=== PATIENT | male | born 1960 | race Caucasian/White ===

== ENCOUNTER 2019-08-15 12:51 | Inpatient (IN) | payer MEDICARE, OTHER ==
[2019-08-15] MEDS ORDERED: METOPROLOL TARTRATE 5 MG/5 ML VIAL IVP STA (13:33)
[2019-08-15 13:45] LABS: Basophils % (A) 1 %; Eosinophils # (A) 0.2 k/uL (0-0.7); Eosinophils % (A) 3 %; HCT 45.3 % (39.0-53.0); HGB 14.4 gm/dL (13.0-17.5); Lymphocytes # (A) 1.2 k/uL (1.0-4.8); Lymphocytes % (A) 14 %; MCH 28.9 pg (25.0-35.0); MCHC 31.9 g/dL (31.0-37.0); MCV 90.6 fL (80.0-100.0); Mean Platelet Volume 8.1; Monocytes # (A) 0.6 k/uL (0-1.0); Monocytes % (A) 7 %; Neutrophils # (A) 6.3 k/uL (1.3-7.7); Neutrophils % (A) 75 %; Platelet Count 175 k/uL (150-450); RDW 14.9 % (11.5-15.5); WBC 8.5 k/uL (3.8-10.6)
--- NOTE | 2019-08-15 13:59 | XR ---
EXAMINATION TYPE: XR chest 2V DATE OF EXAM: 08/15/2019 COMPARISON: NONE HISTORY: Difficulty breathing TECHNIQUE: Frontal and lateral views of the chest are obtained. FINDINGS: There are low lung volumes accentuating the pulmonary vasculature. Central pulmonary vascu lar prominence however is noted. Trace pleural effusions suggested on the lateral view. Cardiomediast inal silhouette is enlarged although partially relative given the low lung volumes. Mild degenerative change of the spine. IMPRESSION: Mild pulmonary vascular congestion, cardiomegaly, and trace pleural effusions all exagge rated by low lung volumes.
[2019-08-15 14:03] LABS: ALT 37 U/L (4-49); African American GFR (CKD) >90 (>60 ml/min/1.73 sqM); Anion Gap 10 mmol/L; Blood Urea Nitrogen 16 mg/dL (9-20); Calcium 9.7 mg/dL (8.4-10.2); Carbon Dioxide 23 mmol/L (22-30); Chloride 100 mmol/L (98-107); Glucose 263 mg/dL (74-99); Non-African American GFR(CKD) 85 (>60 ml/min/1.73 sqM); Sodium 133 mmol/L (137-145); Total Bilirubin 1.2 mg/dL (0.2-1.3)
[2019-08-15 14:13] LABS: Potassium 5.5 mmol/L (3.5-5.1)
[2019-08-15 14:14] LABS: AST 56 U/L (17-59); Albumin 4.3 g/dL (3.5-5.0); Alkaline Phosphatase 100 U/L (38-126); Total Protein 7.1 g/dL (6.3-8.2)
[2019-08-15 14:24] LABS: INR 1.1 (<1.2); Prothrombin Time 10.9 sec (9.0-12.0)
[2019-08-15 14:46] LABS: D-Dimer 1.68 mg/L FEU (<0.60)
[2019-08-15 14:47] LABS: Partial Thromboplastin Time 20.9 sec (22.0-30.0)
--- NOTE | 2019-08-15 15:32 | ED ---
SOB HPI - General Chief Complaint: Shortness of Breath Stated Complaint: SOB Time Seen by Provider: 08/15/19 13:04 Source: patient, RN notes reviewed Mode of arrival: ambulatory Limitations: no limitations - History of Present Illness Initial Comments: 59-year-old male presents emergency Department with chief complaint of shortness breath. He's had increasing transfer the last couple days. He states is worse with exertion. Denies any leg swelling. Patient states that he does have a history of hypertension diabetes he states he did not take any of his medications. Patient does admit that he has mild asthma and has been having increased nasal congestion, sinus issues with ALLERGIES. Patient has complaints of abdominal pain denies any significant lower extremity swelling. Patient denies any dysuria hematuria no other complaints at this time. - Related Data Allergies Allergy/AdvReac Type Severity Reaction Status Date / Time aspirin Allergy Anaphylaxis Verified 08/15/19 13:04 Sulfa (Sulfonamide Allergy Anaphylaxis Verified 08/15/19 13:04 Antibiotics) Review of Systems ROS Statement: Those systems with pertinent positive or pertinent negative responses have been documented in the HPI. ROS Other: All systems not noted in ROS Statement are negative. Past Medical History Past Medical History: Asthma, Diabetes Mellitus, Hyperlipidemia, Hypertension History of Any Multi-Drug Resistant Organisms: None Reported Past Surgical History: Appendectomy Past Psychological History: Schizophrenia Smoking Status: Current every day smoker Past Alcohol Use History: None Reported Past Drug Use History: None Reported General Exam Limitations: no limitations General appearance: alert, in no apparent distress, anxious Head exam: Present: atraumatic, normocephalic, normal inspection Eye exam: Present: normal appearance, PERRL, EOMI. Absent: scleral icterus, conjunctival injection, periorbital swelling ENT exam: Present: normal exam, normal oropharynx, mucous membranes moist Neck exam: Present: normal inspection, full ROM. Absent: tenderness, meningismus, lymphadenopathy Respiratory exam: Present: normal lung sounds bilaterally. Absent: respiratory distress, wheezes, rales, rhonchi, stridor Cardiovascular Exam: Present: normal rhythm, tachycardia, normal heart sounds. Absent: systolic murmur, diastolic murmur, rubs, gallop, clicks GI/Abdominal exam: Present: soft, normal bowel sounds. Absent: distended, tenderness, guarding, rebound, rigid Extremities exam: Absent: pedal edema Neurological exam: Present: alert, oriented X3, CN II-XII intact Skin exam: Present: warm, dry, intact, normal color. Absent: rash Course Vital Signs 08/15/19 08/15/19 08/15/19 13:02 13:04 13:22 Temperature 98.3 F Pulse Rate 126 H Respiratory 18 20 20 Rate Blood Pressure 149/101 O2 Sat by Pulse 97 Oximetry 08/15/19 14:04 Temperature Pulse Rate 108 H Respiratory 20 Rate Blood Pressure 138/104 O2 Sat by Pulse 98 Oximetry Medical Decision Making - Lab Data Result diagrams: 08/15/19 13:25 08/15/19 13:25 Lab Results 08/15/19 08/15/19 08/15/19 Range/Units 13:25 13:25 13:25 WBC 8.5 (3.8-10.6) k/uL RBC 5.00 (4.30-5.90) m/uL Hgb 14.4 (13.0-17.5) gm/dL Hct 45.3 (39.0-53.0) % MCV 90.6 (80.0-100.0) fL MCH 28.9 (25.0-35.0) pg MCHC 31.9 (31.0-37.0) g/dL RDW 14.9 (11.5-15.5) % Plt Count 175 (150-450) k/uL Neutrophils % 75 % Lymphocytes % 14 % Monocytes % 7 % Eosinophils % 3 % Basophils % 1 % Neutrophils # 6.3 (1.3-7.7) k/uL Lymphocytes # 1.2 (1.0-4.8) k/uL Monocytes # 0.6 (0-1.0) k/uL Eosinophils # 0.2 (0-0.7) k/uL Basophils # 0.0 (0-0.2) k/uL PT (9.0-12.0) sec INR (<1.2) APTT (22.0-30.0) sec D-Dimer (<0.60) mg/L FEU Sodium 133 L (137-145) mmol/L Potassium 5.5 H (3.5-5.1) mmol/L Chloride 100 (98-107) mmol/L Carbon Dioxide 23 (22-30) mmol/L Anion Gap 10 mmol/L BUN 16 (9-20) mg/dL Creatinine 0.98 (0.66-1.25) mg/dL Est GFR (CKD-EPI)AfAm >90 (>60 ml/min/1.73 sqM) Est GFR (CKD-EPI)NonAf 85 (>60 ml/min/1.73 sqM) Glucose 263 H (74-99) mg/dL Plasma Lactic Acid Amador 1.7 (0.7-2.0) mmol/L Calcium 9.7 (8.4-10.2) mg/dL Magnesium 2.0 (1.6-2.3) mg/dL Total Bilirubin 1.2 (0.2-1.3) mg/dL AST 56 (17-59) U/L ALT 37 (4-49) U/L Alkaline Phosphatase 100 (38-126) U/L Troponin I (0.000-0.034) ng/mL NT-Pro-B Natriuret Pep pg/mL Total Protein 7.1 (6.3-8.2) g/dL Albumin 4.3 (3.5-5.0) g/dL 08/15/19 08/15/19 08/15/19 Range/Units 13:25 13:25 13:50 WBC (3.8-10.6) k/uL RBC (4.30-5.90) m/uL Hgb (13.0-17.5) gm/dL Hct (39.0-53.0) % MCV (80.0-100.0) fL MCH (25.0-35.0) pg MCHC (31.0-37.0) g/dL RDW (11.5-15.5) % Plt Count (150-450) k/uL Neutrophils % % Lymphocytes % % Monocytes % % Eosinophils % % Basophils % % Neutrophils # (1.3-7.7) k/uL Lymphocytes # (1.0-4.8) k/uL Monocytes # (0-1.0) k/uL Eosinophils # (0-0.7) k/uL Basophils # (0-0.2) k/uL PT 10.9 (9.0-12.0) sec INR 1.1 (<1.2) APTT 20.9 L (22.0-30.0) sec D-Dimer 1.68 H (<0.60) mg/L FEU Sodium (137-145) mmol/L Potassium (3.5-5.1) mmol/L Chloride (98-107) mmol/L Carbon Dioxide (22-30) mmol/L Anion Gap mmol/L BUN (9-20) mg/dL Creatinine (0.66-1.25) mg/dL Est GFR (CKD-EPI)AfAm (>60 ml/min/1.73 sqM) Est GFR (CKD-EPI)NonAf (>60 ml/min/1.73 sqM) Glucose (74-99) mg/dL Plasma Lactic Acid Amador (0.7-2.0) mmol/L Calcium (8.4-10.2) mg/dL Magnesium (1.6-2.3) mg/dL Total Bilirubin (0.2-1.3) mg/dL AST (17-59) U/L ALT (4-49) U/L Alkaline Phosphatase (38-126) U/L Troponin I 0.047 H* (0.000-0.034) ng/mL NT-Pro-B Natriuret Pep 4690 pg/mL Total Protein (6.3-8.2) g/dL Albumin (3.5-5.0) g/dL - EKG Data -: EKG Interpreted by Me EKG Comments: EKG performed at 13:13 sinus tachycardia rate of 127 PA 156 QRS 84 QT/QTc to 86/4:15 Disposition Referrals: Amy Bedoya MD [Primary Care Provider] - 1-2 days
--- NOTE | 2019-08-15 15:41 | CT ---
EXAMINATION TYPE: CT chest angio for PE DATE OF EXAM: 08/15/2019 COMPARISON: NONE HISTORY: Shortness of breath, elevated d-dimer. CT DLP: 680.3 mGycm. Automated Exposure Control for Dose Reduction was Utilized. CONTRAST: CTA scan of the thorax is performed with IV Contrast, patient injected with 100 mL of Isovue 370, pul monary embolism protocol. MIP Images are created on CT scanner and reviewed. FINDINGS: LUNGS: Moderate bilateral pleural effusions are seen, right greater than left with associated subsegm ental compressive atelectasis. Intrafissural fluid is seen on the right. There is no pleural effusi on or pneumothorax seen. The tracheobronchial tree is patent. MEDIASTINUM: There is satisfactory enhancement of the pulmonary artery and its branches, there is no CT evidence for pulmonary embolism. Heart is mildly enlarged. Shotty less than 1 cm lymph nodes are s een other than the prominent subcarinal lymph node measuring 1.4 cm, which can be greater than 1 cm n ormally. Trace pericardial effusion. Mild coronary artery calcifications. Bolus timing limits evaluat ion of the thoracic aorta for dissection. No aneurysmal dilatation. OTHER: Small hiatal hernia. Exam is limited in the upper abdomen by since the patient motion. Gallbla dder is contracted and a trace amount of perihepatic ascites is seen. Ascites is also seen in the lef t paracentral abdomen. Mild degree anasarca. Probable small bone island in the left glenoid mild to m oderate degenerative change of the spine. IMPRESSION: 1. No CT evidence of pulmonary embolism. 2. Fluid overload with moderate bilateral pleural effusions, right greater than left, and associated atelectasis. Consider cardiogenic fluid overload. 3. Although the upper abdomen is grossly limited by patient motion trace perihepatic ascites and smal l amount of left paracentral ascites is seen. Mild degree anasarca also noted.
[2019-08-15] MEDS ORDERED: FUROSEMIDE 10 MG/ML 4 ML VIAL IV STA (15:45)
[2019-08-15] MEDS ORDERED: HEPARIN SODIUM,PORCINE 5,000 UNIT/ML 1 ML VIAL IV ONE (15:47)
[2019-08-15] MEDS ORDERED: HEPARIN SODIUM,PORCINE 5,000 UNIT/ML 1 ML VIAL IV PRN (15:47)
[2019-08-15] MEDS ORDERED: LABETALOL 5 MG/ML VIAL MDV IVP STA (16:04)
[2019-08-15] MEDS: HEPARIN SOD,PORK IN 0.45% NACL 25,000 UNIT in 0.45% NACL 1 250ML.BAG IV SCH (17:27)
[2019-08-15] MEDS ORDERED: QUEtiapine 25 MG TAB PO PRN (21:08)
[2019-08-15] MEDS ORDERED: INSULIN DETEMIR (LEVEMIR) 100 UNIT/ML SYR SQ SCH (21:30)
[2019-08-15 22:02] LABS: Appearance,Urine Clear (Clear); Bilirubin,Urine Negative (Negative); Blood,Urine Negative (Negative); Color,Urine Light Yellow; Glucose,Urine (UA) Negative (Negative); Ketones,Urine Negative (Negative); Leukocyte Esterase,Urine Negative (Negative); Nitrite,Urine Negative (Negative); PH, Urine 6.5 (5.0-8.0); Protein,Urine Negative (Negative); Specific Gravity,Urine 1.015 (1.001-1.035); Urobilinogen,Urine <2.0 mg/dL (<2.0)
--- NOTE | 2019-08-15 22:03 | HP ---
HISTORY AND PHYSICAL DATE OF SERVICE: 08/15/2019 CHIEF COMPLAINT: Shortness of breath. HISTORY OF PRESENT ILLNESS: This 59-year-old gentleman with a past history of asthma, diabetes mellitus, hypertension, hyperlipidemia, history of appendectomy, schizophrenia, nicotine dependence, being followed by Dr. Bedoya in the outpatient setting, was complaining of increased shortness of breath over the past several days. The patient also has some cough also, not much sputum is obtained. The patient also had minimal leg swelling and patient came to [facility] and admitted for evaluation and treatment. The patient was noted to have bilateral pleural effusion and an appearance of CHF. A CT angio did not show any evidence of any pulmonary embolism and COVID-19 test is pending at this time. Cardiology evaluation in progress. There is no history of fever, rigors. No history of headache, loss of consciousness, seizures. PAST MEDICAL HISTORY: History of asthma, diabetes mellitus, hypertension, hyperlipidemia, appendectomy, schizophrenia, history of nicotine dependence. HOME MEDICATIONS: 1. Seroquel 150 mg q.h.s. 2. ( ) 25 mg q.h.s. p.r.n. 3. Toprol-XL 25 mg p.o. daily. 4. Metformin 1000 mg p.o. b.i.d. 5. Levemir 65 units q.h.s. 6. Amaryl 4 mg p.o. b.i.d. ALLERGIES: ASPIRIN, SULFA. FAMILY HISTORY: No history of heart disease or strokes in the family. SOCIAL HISTORY: History of smoking daily, ongoing. REVIEW OF SYSTEMS: ENT No history of diminished hearing or vision. CARDIOVASCULAR As mentioned earlier. RESPIRATORY As mentioned earlier. GI No nausea, vomiting, or diarrhea. No dysuria or hematuria. NERVOUS No numbness or weakness. ALLERGY/IMMUNOLOGY As mentioned earlier. MUSCULOSKELETAL As mentioned earlier. HEMATOLOGY/ONCOLOGY Negative. ENDOCRINE Diabetes. CONSTITUTIONAL As mentioned earlier. DERMATOLOGY Negative. RHEUMATOLOGY Negative. PSYCHIATRY As mentioned earlier. PHYSICAL EXAM: Patient is alert, oriented x3. The pulse is 108, blood pressure 138/104, respiration 20, temperature 98.2, pulse ox 98% on 2 L. HEENT: Conjunctivae normal. Oral mucosa moist. NECK: No jugular venous distention. No lymph node enlargement. CARDIOVASCULAR: S1, S2. RESPIRATORY: Diminished breath sounds at the bases. A few basilar crackles. ABDOMEN: Soft, obese, nontender. LEGS: Bilateral leg edema. NERVOUS SYSTEM: Higher functions mentioned earlier. Moves all four limbs. No focal deficits. LYMPHATICS: No lymph node in neck or axilla. SKIN: No rash. JOINTS: No active deforming arthropathy. LABS: CBC within normal limits and D-dimer is 1.68. Sodium 132, potassium 5.5, glucose 263 and troponin 0.047. ASSESSMENT: 1. Congestive heart failure acute exacerbation, ejection fraction unknown. 2. Bilateral pleural effusions. 3. Hyponatremia. 4. Hyperkalemia. 5. Diabetes mellitus type 2. 6. Elevated D-dimer without any evidence of any pulmonary embolism. 7. Troponin 0.046, indeterminate. 8. History of asthma. 9. Hypertension. 10.Hyperlipidemia. 11.History of schizophrenia. 12.History of continued ongoing nicotine dependence. RECOMMENDATIONS AND DISCUSSION: In this 59-year-old gentleman who presented with multiple complex medical issues, we will monitor the patient closely, continue the current management, continue symptomatic treatment. Will initiate IV diuretics, cardiology consultation, 2D echo with Doppler, full cardiac workup, resume the home medication, monitor blood sugars closely, PT/OT evaluation. Overall prognosis guarded because of multiple complex medical issues. Further recommendations to follow. See orders for further details. MMODL / IJN: [id number] /
[2019-08-15 22:08] LABS: Glucose,Whole Blood 308 mg/dL (75-99)
[2019-08-15] MEDS: QUEtiapine 50 MG TAB PO SCH (22:28)
[2019-08-15] MEDS: QUEtiapine 25 MG TAB PO SCH (22:29)
[2019-08-15] MEDS: FUROSEMIDE 10 MG/ML 4 ML VIAL IV SCH (22:29)
[2019-08-16 04:24] LABS: Basophils % (A) 1 %; Eosinophils # (A) 0.3 k/uL (0-0.7); Eosinophils % (A) 5 %; HCT 41.9 % (39.0-53.0); HGB 13.3 gm/dL (13.0-17.5); Hypochromasia Slight; Lymphocytes # (A) 1.7 k/uL (1.0-4.8); Lymphocytes % (A) 25 %; MCH 29.2 pg (25.0-35.0); MCHC 31.8 g/dL (31.0-37.0); MCV 91.9 fL (80.0-100.0); Mean Platelet Volume 7.6; Monocytes # (A) 0.4 k/uL (0-1.0); Monocytes % (A) 6 %; Neutrophils # (A) 4.4 k/uL (1.3-7.7); Neutrophils % (A) 62 %; Platelet Count 154 k/uL (150-450); RBC 4.56 m/uL (4.30-5.90); RDW 14.8 % (11.5-15.5)
[2019-08-16 04:33] LABS: INR 1.2 (<1.2); Partial Thromboplastin Time 30.7 sec (22.0-30.0); Prothrombin Time 11.8 sec (9.0-12.0)
[2019-08-16 04:55] LABS: African American GFR (CKD) >90 (>60 ml/min/1.73 sqM); Anion Gap 5 mmol/L; Blood Urea Nitrogen 17 mg/dL (9-20); Carbon Dioxide 30 mmol/L (22-30); Chloride 99 mmol/L (98-107); Glucose 212 mg/dL (74-99); Non-African American GFR(CKD) 81 (>60 ml/min/1.73 sqM); Potassium 3.9 mmol/L (3.5-5.1); Sodium 134 mmol/L (137-145)
[2019-08-16 06:13] LABS: Glucose,Whole Blood 163 mg/dL (75-99)
[2019-08-16] MEDS: INSULIN ASPART (NovoLOG) 100 UNIT/ML VIAL SQ SCH ×4 (06:48→20:15)
[2019-08-16] MEDS: FUROSEMIDE 10 MG/ML 4 ML VIAL IV SCH ×3 (07:52→20:21)
[2019-08-16] MEDS: METOPROLOL SUCCINATE (ER) 25 MG TAB.ER.24H PO SCH (07:53)
[2019-08-16] MEDS: GLIMEPIRIDE 4 MG TAB PO SCH ×2 (07:53→20:22)
[2019-08-16] MEDS: metFORMIN 500 MG TAB PO SCH ×2 (07:53→20:22)
--- NOTE | 2019-08-16 10:48 | P.CRDCN ---
History of Present Illness Consult date: 08/16/19 Requesting physician: Arturo Caba Consult reason: congestive heart failure Chief complaint: Shortness of breath History of present illness: This is a pleasant 59-year-old gentleman with documented history of hypertension, diabetes, hyperlipidemia, asthma, nicotine dependence, schizophr enia, who presented to the hospital with symptoms of progressively worsening shortness of breath over approximately one week duration. He states that he was unable to lie flat in his bed, he became very short of breath doing this. Patient also states that he started to notice swelling in his bilateral lower extremities and abdominal region. For this reason he came to the hospital for further evaluation and treatment. The patient also states that he's been having fever at home with associated vomiting, chills. His chest x-ray on presentation here showed mild pulmonary vascular congestion with trace effusions. A CTA of the chest was performed which did not reveal evidence for pulmonary embolism, it did show fluid overload and a right greater than left pleural effusion. EKG on presentation here showed a sinus tachycardia. Blood pressure on arrival 112/70, heart rate 104, respirations 16, 98% on 2 L of oxygen. White blood cell count 7.0, hemoglobin 13.3, platelet count 154. D-dimer 1.68. Sodium 134, potassium 3.9, BUN 17, creatinine 1.0. BNP level 4690, troponin 0.047. Coated testing remains pending. Patient was initiated on IV Lasix in the emergency room, he is also currently on IV heparin. He has been diuresing well overall. At the time of examination this morning, patient states that his breathing is somewhat improved. He denies any prior history of congestive heart failure. Past Medical History Past Medical History: Asthma, Diabetes Mellitus, Hyperlipidemia, Hypertension History of Any Multi-Drug Resistant Organisms: None Reported Past Surgical History: Appendectomy Past Anesthesia/Blood Transfusion Reactions: No Reported Reaction Past Psychological History: Schizophrenia Smoking Status: Never smoker Past Alcohol Use History: None Reported Past Drug Use History: None Reported - Past Family History Mother Family Medical History: Cancer Father Additional Family Medical History / Comment(s): HEART ISSUES Medications and Allergies Home Medications Medication Instructions Recorded Confirmed Type Glimepiride [Amaryl] 4 mg PO BID 08/15/19 08/15/19 History Insulin Detemir [Levemir Flextouch] 65 units SQ HS 08/15/19 08/15/19 History Metoprolol Succinate (ER) [Toprol 25 mg PO DAILY 08/15/19 08/15/19 History Xl] QUEtiapine [SEROquel] 25 mg PO HS PRN 08/15/19 08/15/19 History QUEtiapine [SEROquel] 150 mg PO HS 08/15/19 08/15/19 History metFORMIN HCL 1,000 mg PO BID 08/15/19 08/15/19 History Allergies Allergy/AdvReac Type Severity Reaction Status Date / Time aspirin Allergy Anaphylaxis Verified 08/15/19 13:04 Sulfa (Sulfonamide Allergy Anaphylaxis Verified 08/15/19 13:04 Antibiotics) Physical Exam Vitals: Vital Signs Temp Pulse Pulse Resp BP BP Pulse Ox 08/16/19 08:00 103 H 08/16/19 07:51 97.2 F L 103 H 18 120/80 98 08/16/19 04:00 97.6 F 102 H 16 112/75 98 08/16/19 02:49 97.5 F L 105 H 18 130/87 98 08/16/19 02:46 97.5 F L 105 H 18 130/87 98 08/16/19 02:00 97 18 126/84 99 08/16/19 00:30 102 H 20 136/97 95 08/16/19 00:00 111 H 18 158/107 97 08/15/19 23:30 112 H 18 158/106 100 08/15/19 23:00 111 H 24 158/107 97 08/15/19 22:30 105 H 20 150/111 97 08/15/19 22:00 107 H 24 141/113 98 08/15/19 21:30 108 H 24 149/100 98 08/15/19 21:00 107 H 18 153/118 94 L 08/15/19 20:30 105 H 24 152/108 96 08/15/19 20:25 105 H 24 152/108 96 08/15/19 20:00 105 H 16 148/114 96 08/15/19 14:04 108 H 20 138/104 98 08/15/19 13:22 20 08/15/19 13:04 20 08/15/19 13:02 98.3 F 126 H 18 149/101 97 Intake and Output 08/15/19 08/16/19 08/16/19 22:59 06:59 14:59 Intake Total 117.68 120 Balance 117.68 120 Intake: Intake, IV Titration 117.68 Amount Heparin Sod,Pork in 0.45% 117.68 NaCl 25,000 unit In 0.45 % NaCl 1 250ml.bag @ 10.9 UNITS/KG/HR 9.987 mls/hr IV .Q24H [facility] Rx#: [id number] Oral 120 Other: Voiding Method Toilet Urinal # Voids 0 Weight 101 kg PHYSICAL EXAMINATION: GENERAL: 59-year-old gentleman in no acute distress at the time of my examination HEENT: Head is atraumatic, normocephalic. Pupils equal, round. Sclera anicteric. Conjunctiva are clear. Mucous membranes of the mouth are moist. Neck is supple. There is elevated jugular venous pressure. No carotid bruit is heard. HEART EXAMINATION: Heart S1, S2 normal. No murmur or gallop heard. CHEST EXAMINATION:[ Lungs are clear with diminished air entry to the bases bi laterally. ABDOMEN: Soft, nontender. Bowel sounds are heard. No organomegaly noted. EXTREMITIES: 2+ peripheral pulses with 1+ evidence of peripheral edema and no calf tenderness noted. NEUROLOGIC patient is awake, alert and oriented 3 . Results 08/16/19 04:11 08/16/19 04:11 Cardiac Enzymes 08/15/19 08/15/19 Range/Units 13:25 13:25 AST 56 (17-59) U/L Troponin I 0.047 H* (0.000-0.034) ng/mL Coagulation 08/15/19 08/16/19 08/16/19 Range/Units 13:50 04:11 10:09 PT 10.9 11.8 (9.0-12.0) sec APTT 20.9 L 30.7 H 33.7 H (22.0-30.0) sec CBC 08/15/19 08/16/19 Range/Units 13:25 04:11 WBC 8.5 7.0 (3.8-10.6) k/uL RBC 5.00 4.56 (4.30-5.90) m/uL Hgb 14.4 13.3 (13.0-17.5) gm/dL Hct 45.3 41.9 (39.0-53.0) % Plt Count 175 154 (150-450) k/uL Comprehensive Metabolic Panel 08/15/19 08/16/19 Range/Units 13:25 04:11 Sodium 133 L 134 L (137-145) mmol/L Potassium 5.5 H 3.9 (3.5-5.1) mmol/L Chloride 100 99 (98-107) mmol/L Carbon Dioxide 23 30 (22-30) mmol/L BUN 16 17 (9-20) mg/dL Creatinine 0.98 1.01 (0.66-1.25) mg/dL Glucose 263 H 212 H (74-99) mg/dL Calcium 9.7 9.0 (8.4-10.2) mg/dL AST 56 (17-59) U/L ALT 37 (4-49) U/L Alkaline Phosphatase 100 (38-126) U/L Total Protein 7.1 (6.3-8.2) g/dL Albumin 4.3 (3.5-5.0) g/dL Current Medications Generic Name Dose Route Start Last Admin Trade Name Kennethq PRN Reason Stop Dose Admin Furosemide 40 mg 08/15/19 22:00 08/16/19 07:52 Lasix IV 40 mg TID [facility] Administration Glimepiride 4 mg 08/16/19 09:00 08/16/19 07:53 Amaryl PO 4 mg BID [facility] Administration Heparin Sodium (Porcine) 0 unit 08/15/19 15:47 Heparin IV PER PROTOCOL PRN Low PTT Protocol Heparin Sodium/Sodium Chloride 250 mls @ 9.987 mls/hr 08/15/19 16:00 08/16/19 05:14 25,000 unit/ Sodium Chloride IV 13.9 units/kg/hr .Q24H [facility] 12.736 mls/hr Titration Protocol 10.9 UNITS/KG/HR Insulin Aspart 0 unit 08/16/19 07:30 08/16/19 06:48 Novolog SQ 1 unit ACHS [facility] Administration Protocol Insulin Detemir 65 unit 08/16/19 04:47 Levemir SQ HS [facility] Metformin HCl 1,000 mg 08/16/19 09:00 08/16/19 07:53 Glucophage PO 1,000 mg BID [facility] Administration Metoprolol Succinate 25 mg 08/16/19 09:00 08/16/19 07:53 Toprol Xl PO 25 mg DAILY [facility] Administration Quetiapine Fumarate 150 mg 08/15/19 21:15 08/15/19 22:28 Seroquel PO 150 mg HS [facility] Administration Quetiapine Fumarate 25 mg 08/15/19 22:14 08/15/19 22:29 Seroquel PO 25 mg HS [facility] Administration Intake and Output 08/15/19 08/16/19 08/16/19 22:59 06:59 14:59 Intake Total 117.68 120 Balance 117.68 120 Intake: Intake, IV Titration 117.68 Amount Heparin Sod,Pork in 0.45% 117.68 NaCl 25,000 unit In 0.45 % NaCl 1 250ml.bag @ 10.9 UNITS/KG/HR 9.987 mls/hr IV .Q24H [facility] Rx#: [id number] Oral 120 Other: Voiding Method Toilet Urinal # Voids 0 Weight 101 kg 08/16/19 04:11 08/16/19 04:11 EKG Interpretations (text) EKG shows a sinus tachycardia, nonspecific ST-T wave changes. Assessment and Plan Plan: Assessment and plan #1 congestive heart failure, LV function unknown #2 recent fever and chills, Covid testing pending #3 hypertension, accelerated on admission #4 diabetes #5 hyperlipidemia #6 asthma #7 nicotine dependence #8 schizophrenia #9 sinus tachycardia with elevated d-dimer, a CTA of the chest negative for pulmonary embolism #10 abnormal troponin times one. 0.047 Plan We will continue IV push Lasix, obtain an echocardiogram with Doppler study to assess the patient's LV function. Add a beta jeremy to optimize blood pressure and heart rate control. Await Covid results. Continue IV heparin. Obtain 2 subsequent troponins. Further recommendations to follow. DNP note has been reviewed, I agree with a documented findings and plan of care. Patient was seen and examined.
[2019-08-16] MEDS: SPIRONOLACTONE 25 MG TAB PO SCH (11:11)
[2019-08-16] MEDS: HEPARIN SOD,PORK IN 0.45% NACL 25,000 UNIT in 0.45% NACL 1 250ML.BAG IV SCH (11:12)
--- NOTE | 2019-08-16 11:37 | ECHOF ---
Referral Reason:Heart Failure MEASUREMENTS -------- HEIGHT: 177.8 cm WEIGHT: 100.7 kg BP: 112/75 IVSd: 1.4 cm (0.6 - 1.1) LVIDd: 4.5 cm (3.9 - 5.3) LVPWd: 1.4 cm (0.6 - 1.1) IVSs: 1.7 cm LVIDs: 3.6 cm LVPWs: 1.5 cm LA Diam: 3.9 cm (2.7 - 3.8) RVIDd: 3.9 cm (< 3.3) LAESV Index (A-L): 21.16 ml/m Ao Diam: 3.3 cm (2.0 - 3.7) AV Cusp: 2.0 cm (1.5 - 2.6) EPSS: 1.4 cm MV E James: 0.98 m/s MV DecT: 65 ms MV A James: 0.32 m/s MV E/A Ratio: 3.05 RAP: 15.00 mmHg RVSP: 37.49 mmHg MV EF SLOPE: 118.22 mm/s (70 - 150) MV EXCURSION: 14.23 mm (> 18.000) FINDINGS -------- Resting tachycardia (HR>100bpm). The left ventricular size is normal. There is moderate concentric left ventricular hypertrophy. O verall left ventricular systolic function is severely impaired with, an EF between 20 - 25 %. Apica l anterior LV wall motion is hypokinetic. Apical lateral LV wall motion is hypokinetic. Apical inferior LV wall motion is hypokinetic. Apical septum LV wall motion is hypokinetic. The right ventricle is moderately enlarged. Normal LA size by volume 22+/-6 ml/m2. The right atrium is normal in size. Interatrial and interventricular septum intact. There is mild aortic valve sclerosis. There is mild aortic regurgitation. Mild mitral annular calcification present. Mild mitral regurgitation is present. Mild tricuspid regurgitation present. There is mild pulmonary hypertension. The right ventricular systolic pressure, as measured by Doppler, is 37.49mmHg. Trace/mild (physiologic) pulmonic regurgitation. The aortic root size is normal. The inferior vena cava is dilated with no significant inspiratory collapse which is consistent estima jasson right atrial pressure of >15 mmHg. There is no pericardial effusion. Pleural Effusion with Fibrin. CONCLUSIONS -------- 1. Resting tachycardia (HR>100bpm). 2. The left ventricular size is normal. 3. There is moderate concentric left ventricular hypertrophy. 4. Overall left ventricular systolic function is severely impaired with, an EF between 20 - 25 %. 5. Apical anterior LV wall motion is hypokinetic. 6. Apical lateral LV wall motion is hypokinetic. 7. Apical inferior LV wall motion is hypokinetic. 8. Apical septum LV wall motion is hypokinetic. 9. The right ventricle is moderately enlarged. 10. Normal LA size by volume 22+/-6 ml/m2. 11. The right atrium is normal in size. 12. Interatrial and interventricular septum intact. 13. There is mild aortic valve sclerosis. 14. There is mild aortic regurgitation. 15. Mild mitral annular calcification present. 16. Mild mitral regurgitation is present. 17. Mild tricuspid regurgitation present. 18. There is mild pulmonary hypertension. 19. The right ventricular systolic pressure, as measured by Doppler, is 37.49mmHg. 20. Trace/mild (physiologic) pulmonic regurgitation. 21. The aortic root size is normal. 22. The inferior vena cava is dilated with no significant inspiratory collapse which is consistent es timated right atrial pressure of >15 mmHg. 23. There is no pericardial effusion. 24. Pleural Effusion with Fibrin. [employer] SUPERVISOR: Angelique Bahena RDCS
[2019-08-16 11:44] LABS: Glucose,Whole Blood 75 mg/dL (75-99)
[2019-08-16 12:59] VITALS: BMI 31.9
[2019-08-16 16:50] LABS: Glucose,Whole Blood 144 mg/dL (75-99)
--- NOTE | 2019-08-16 17:03 | US ---
EXAMINATION TYPE: US abdomen limited DATE OF EXAM: 08/16/2019 COMPARISON: CTA chest from yesterday. CLINICAL HISTORY: ascites. Pain and swelling. 8 images saved of the bilateral upper and lower quadrants show no significant intra-abdominal fluid o r ascites. IMPRESSION: As above.
--- NOTE | 2019-08-16 17:42 | PN ---
PROGRESS NOTE DATE OF SERVICE: 08/16/2019 This is a 59-year-old gentleman admitted with shortness of breath and fever, possible CHF acute exacerbation. The patient also had bilateral pleural effusions. A chest CT was done to rule out the possible pulmonary embolism yesterday which showed no CT evidence of pulmonary embolus, but the fluid overload with moderate bilateral pleural effusions and small amount of ascites are also noted. A 2D echo with Doppler was done today which showed ejection fraction 20% to 25%, with diffuse wall motion abnormalities. Patient will be closely monitored. Cardiology following the patient closely. PAST MEDICAL HISTORY: Reviewed. REVIEW OF SYSTEMS: CARDIOVASCULAR SYSTEM: As mentioned earlier. GI: No nausea. : No dysuria. NERVOUS SYSTEM: No numbness or weakness. The patient's COVID testing came back negative. Troponin indeterminate at 0.047. CURRENT MEDICATIONS: Reviewed and include: 1. Lasix 40 mg IV t.i.d. 2. Amaryl. 3. Heparin. 4. NovoLog. 5. Levemir. 6. Zestril. 7. Glucophage. 8. Toprol. 9. Seroquel. 10.Aldactone. PHYSICAL EXAM: Patient is alert, oriented. X3. Pulse is 102, blood pressure 128/83, respiration 18, temperature 97.9, pulse ox 98% on room air. HEENT: Conjunctivae normal. NECK: No jugular venous congestion. CARDIOVASCULAR: S1, S2, muffled. RESPIRATORY: Breath sounds at the bases, bilateral scattered rhonchi. ABDOMEN: Soft, obese. LEGS: Bilateral leg edema. NERVOUS SYSTEM: No focal deficits. LABS: D-dimer is 1.68. Sodium 133, potassium 5.5. Other labs are pending today. Glucose 308. ASSESSMENT: 1. Congestive heart failure acute exacerbation with acute on chronic systolic dysfunction ejection fraction 20%-25% with mild mitral regurgitation and tricuspid regurgitation. 2. Hyponatremia. 3. Hyperkalemia. 4. Ascites, possibly. 5. Bilateral pleural effusion. 6. Diabetes mellitus type 2. 7. Elevated D-dimer without any evidence of acute pulmonary embolism. 8. Troponin 0.046, indeterminate. 9. History of asthma. 10.Hypertension. 11.COVID-19 ruled out. 12.Hyperlipidemia. 13.History of schizophrenia. 14.History of continued ongoing nicotine dependence. 15.FULL CODE. RECOMMENDATION: In this 59-year-old gentleman who presented with multiple complex medical issues, will monitor the patient closely. Continue with the current management and treatment continue with diuretics. I would also recommend repeat chest x-ray. Closely follow with Cardiology. I would also recommend ultrasound of the abdomen to rule out the possible ascites. Otherwise, continue the rest of the medications. Patient is on initiate the patient is on beta blockers. Closely follow with Cardiology. The EKG showed sinus tachycardia. Sinus tachycardia with non-progression orders, but again, overall prognosis is extremely guarded because of multiple complex medical issues. Further recommendations to follow. MMODL / IJN: [id number] /
[2019-08-16 19:44] LABS: African American GFR (CKD) >90 (>60 ml/min/1.73 sqM); Anion Gap 9 mmol/L; Blood Urea Nitrogen 21 mg/dL (9-20); Calcium 9.4 mg/dL (8.4-10.2); Carbon Dioxide 26 mmol/L (22-30); Chloride 100 mmol/L (98-107); Glucose 113 mg/dL (74-99); Non-African American GFR(CKD) 80 (>60 ml/min/1.73 sqM); Potassium 4.5 mmol/L (3.5-5.1); Sodium 135 mmol/L (137-145)
[2019-08-16 20:14] LABS: Glucose,Whole Blood 104 mg/dL (75-99)
[2019-08-16] MEDS: QUEtiapine 50 MG TAB PO SCH (20:21)
[2019-08-16] MEDS: QUEtiapine 25 MG TAB PO SCH (20:21)
[2019-08-16] MEDS: INSULIN DETEMIR (LEVEMIR) 100 UNIT/ML SYR SQ SCH (20:22)
[2019-08-17 04:18] LABS: Basophils % (A) 0 %; Eosinophils # (A) 0.3 k/uL (0-0.7); Eosinophils % (A) 5 %; HCT 42.2 % (39.0-53.0); HGB 13.2 gm/dL (13.0-17.5); Lymphocytes # (A) 1.8 k/uL (1.0-4.8); Lymphocytes % (A) 29 %; MCH 28.3 pg (25.0-35.0); MCHC 31.3 g/dL (31.0-37.0); MCV 90.3 fL (80.0-100.0); Mean Platelet Volume 7.5; Monocytes # (A) 0.5 k/uL (0-1.0); Monocytes % (A) 8 %; Neutrophils # (A) 3.5 k/uL (1.3-7.7); Neutrophils % (A) 56 %; Platelet Count 151 k/uL (150-450); RBC 4.67 m/uL (4.30-5.90); RDW 14.8 % (11.5-15.5); WBC 6.2 k/uL (3.8-10.6)
[2019-08-17 04:26] LABS: INR 1.2 (<1.2); Prothrombin Time 11.7 sec (9.0-12.0)
[2019-08-17 04:34] LABS: African American GFR (CKD) >90 (>60 ml/min/1.73 sqM); Anion Gap 6 mmol/L; Blood Urea Nitrogen 22 mg/dL (9-20); Calcium 9.3 mg/dL (8.4-10.2); Carbon Dioxide 29 mmol/L (22-30); Chloride 102 mmol/L (98-107); Glucose 73 mg/dL (74-99); Non-African American GFR(CKD) 80 (>60 ml/min/1.73 sqM); Potassium 3.7 mmol/L (3.5-5.1); Sodium 137 mmol/L (137-145)
[2019-08-17] MEDS: INSULIN ASPART (NovoLOG) 100 UNIT/ML VIAL SQ SCH ×4 (06:17→20:36)
[2019-08-17 06:18] LABS: Glucose,Whole Blood 85 mg/dL (75-99)
[2019-08-17 07:09] LABS: Glucose,Whole Blood 86 mg/dL (75-99)
[2019-08-17 07:42] LABS: Glucose,Whole Blood 120 mg/dL (75-99)
--- NOTE | 2019-08-17 07:49 | XR ---
EXAMINATION TYPE: XR chest 1V portable DATE OF EXAM: 08/17/2019 COMPARISON: 08/15/2019 HISTORY: Shortness of breath TECHNIQUE: Single frontal view of the chest is obtained. FINDINGS: Heart is enlarged and there are subsegmental changes at the lung bases. No overt failure. Underlying COPD noted. Small bilateral pleural effusion suspected. IMPRESSION: 1. Improving interstitium suggestive of reducing interstitial edema or venous congestion. 2. Persistent subsegmental areas of consolidation and tiny effusion at the lung bases
[2019-08-17] MEDS: FUROSEMIDE 10 MG/ML 4 ML VIAL IV SCH ×3 (09:34→20:04)
[2019-08-17 11:54] LABS: Glucose,Whole Blood 160 mg/dL (75-99)
[2019-08-17] MEDS: LISINOPRIL 2.5 MG TAB PO SCH (12:51)
[2019-08-17] MEDS: SPIRONOLACTONE 25 MG TAB PO SCH (12:51)
[2019-08-17] MEDS: METOPROLOL SUCCINATE (ER) 25 MG TAB.ER.24H PO SCH (12:52)
[2019-08-17] MEDS: GLIMEPIRIDE 4 MG TAB PO SCH ×2 (12:52→20:35)
[2019-08-17] MEDS: metFORMIN 500 MG TAB PO SCH ×2 (12:52→20:38)
[2019-08-17] MEDS ORDERED: ALPRAZolam 0.25 MG TAB PO PRN (15:32)
[2019-08-17] MEDS ORDERED: NITROGLYCERIN SL TABS 0.4 MG TAB SUBLINGUAL PRN (15:32)
[2019-08-17] MEDS ORDERED: ALPRAZolam 0.5 MG TAB PO PRN (15:32)
--- NOTE | 2019-08-17 15:34 | P.PN ---
Subjective Progress Note Date: 08/17/19 This is a pleasant 59-year-old gentleman with documented history of hypertension, diabetes, hyperlipidemia, asthma, nicotine dependence, schizophrenia, who presented to the hospital with symptoms of progressively worsening shortness of breath over approximately one week duration. He states that he was unable to lie flat in his bed, he became very short of breath doing this. Patient also states that he started to notice swelling in his bilateral lower extremities and abdominal region. For this reason he came to the hospital for further evaluation and treatment. The patient also states that he's been having fever at home with associated vomiting, chills. His chest x-ray on presentation here showed mild pulmonary vascular congestion with trace effusions. A CTA of the chest was performed which did not reveal evidence for pulmonary embolism, it did show fluid overload and a right greater than left pleural effusion. EKG on presentation here showed a sinus tachycardia. Blood pressure on arrival 112/70, heart rate 104, respirations 16, 98% on 2 L of oxygen. White blood cell count 7.0, hemoglobin 13.3, platelet count 154. D- dimer 1.68. Sodium 134, potassium 3.9, BUN 17, creatinine 1.0. BNP level 4690, troponin 0.047. Coated testing remains pending. Patient was initiated on IV Lasix in the emergency room, he is also currently on IV heparin. He has been diuresing well overall. At the time of examination this morning, patient states that his breathing is somewhat improved. He denies any prior history of congestive heart failure. 08/17/2019 Patient was seen and examined This morning, diuresed well through last night. Echocardiogram with Doppler study revealed an ejection fraction of 20-25%. Patient continues to be on IV Lasix. His repeat chest x-ray did show some improvement in his congestive cardiac failure. Sodium 137, potassium 3.7, BUN 22, creatinine 1.0. Objective - Vital Signs Vital signs: Vital Signs Temp 97.4 F L 08/17/19 08:00 Pulse 105 H 08/17/19 12:00 Resp 16 08/17/19 12:00 BP 137/88 08/17/19 12:00 Pulse Ox 95 08/17/19 12:00 Intake & Output 08/16/19 08/17/19 08/17/19 18:59 06:59 18:59 Intake Total 797.366 142.462 200 Output Total 400 2820 Balance 397.366 -2677.538 200 Weight 101 kg 101.6 kg Intake: IV 120 Heparin Sod,Pork in 0.45% 120 NaCl 25,000 unit In 0.45 % NaCl 1 250ml.bag @ 10.9 UNITS/KG/HR 9.987 mls/hr IV .Q24H FRIDA Rx#: [id number] Intake, IV Titration 77.366 142.462 Amount Heparin Sod,Pork in 0.45% 77.366 142.462 NaCl 25,000 unit In 0.45 % NaCl 1 250ml.bag @ 10.9 UNITS/KG/HR 9.987 mls/hr IV .Q24H FRIDA Rx#: [id number] Oral 600 200 Output: Urine 400 2820 Other: Voiding Method Toilet Toilet Urinal Urinal # Voids 1 - Exam PHYSICAL EXAMINATION: GENERAL: 59-year-old gentleman in no acute distress at the time of my examination HEENT: Head is atraumatic, normocephalic. Pupils equal, round. Sclera anicteric. Conjunctiva are clear. Mucous membranes of the mouth are moist. Neck is supple. There is elevated jugular venous pressure. No carotid bruit is heard. HEART EXAMINATION: Heart S1, S2 normal. No murmur or gallop heard. CHEST EXAMINATION:[ Lungs are clear with improvement in air entry to the bases bilaterally. ABDOMEN: Soft, nontender. Bowel sounds are heard. No organomegaly noted. EXTREMITIES: 2+ peripheral pulses with 1+ evidence of peripheral edema and no calf tenderness noted. NEUROLOGIC patient is awake, alert and oriented 3 - Labs CBC & Chem 7: 08/17/19 03:59 08/17/19 03:59 Labs: Abnormal Lab Results - Last 24 Hours (Table) 08/16/19 08/16/19 08/16/19 Range/Units 16:48 18:04 18:04 INR (<1.2) APTT (22.0-30.0) sec Sodium 135 L (137-145) mmol/L BUN 21 H (9-20) mg/dL Glucose 113 H (74-99) mg/dL POC Glucose (mg/dL) 144 H (75-99) mg/dL Troponin I 0.043 H* (0.000-0.034) ng/mL 05/26/20 05/26/20 05/27/20 Range/Units 20:13 22:34 03:59 INR 1.2 H (<1.2) APTT 57.0 H (22.0-30.0) sec Sodium (137-145) mmol/L BUN (9-20) mg/dL Glucose (74-99) mg/dL POC Glucose (mg/dL) 104 H (75-99) mg/dL Troponin I 0.052 H* (0.000-0.034) ng/mL 08/17/19 08/17/19 08/17/19 Range/Units 03:59 07:40 11:50 INR (<1.2) APTT (22.0-30.0) sec Sodium (137-145) mmol/L BUN 22 H (9-20) mg/dL Glucose 73 L (74-99) mg/dL POC Glucose (mg/dL) 120 H 160 H (75-99) mg/dL Troponin I (0.000-0.034) ng/mL Assessment and Plan Plan: Assessment and plan #1 congestive heart failure, LV function unknown #2 recent fever and chills, Covid testing pending #3 hypertension, accelerated on admission #4 diabetes #5 hyperlipidemia #6 asthma #7 nicotine dependence #8 schizophrenia #9 sinus tachycardia with elevated d-dimer, a CTA of the chest negative for pulmonary embolism #10 abnormal troponin times one. 0.047 Plan We will continue IV push Lasix, ejection fraction by echo documented to be 20- 25%. We'll continue to diurese the patient for 24 hours. He's also been advised to undergo coronary angiogram to rule out underlying coronary artery disease. This will be performed tomorrow by Dr. Chamberlain. DNP note has been reviewed, I agree with a documented findings and plan of care. Patient was seen and examined.
[2019-08-17 16:41] LABS: Glucose,Whole Blood 246 mg/dL (75-99)
[2019-08-17] MEDS: HEPARIN SOD,PORK IN 0.45% NACL 25,000 UNIT in 0.45% NACL 1 250ML.BAG IV SCH (17:15)
--- NOTE | 2019-08-17 18:43 | PN ---
PROGRESS NOTE DATE OF SERVICE: 08/17/2019 This 59-year-old gentleman who was admitted with CHF, acute exacerbation, had acute on chronic systolic dysfunction, ejection fraction 20% to 25%, with mitral regurgitation and tricuspid regurgitation. Cardiology is planning cardiac cath tomorrow. Abdominal ultrasound was also done which showed no significant abdominal pathology or ascites. A chest x-ray was done today which I reviewed personally. It showed cardiomegaly and evidence of CHF. The patient is being closely monitored. Cardiology is following the patient closely. Past medical history reviewed. REVIEW OF SYSTEMS: CARDIOVASCULAR SYSTEM: As mentioned earlier. RESPIRATORY SYSTEM: As mentioned earlier. GI: As mentioned earlier. : No dysuria or retention. NERVOUS SYSTEM: No numbness, weakness. CURRENT MEDICATIONS: Reviewed. They include: 1. Xanax 0.25 p.r.n. 2. Aspirin 320 mg. 3. Lipitor 80 mg. 4. Lasix 40 mg IV t.i.d. 5. Amaryl. 6. Heparin. 7. NovoLog. 8. Zestril. 9. Levemir. 10.Glucophage. 11.Toprol-XL. 12.Nitrostat. 13.Seroquel. 14.Aldactone. Doses are reviewed. PHYSICAL EXAMINATION: Patient is alert, oriented x3. Pulse is 105, blood pressure 137/88, respirations 16, temperature 97.4, pulse ox 94% on room air. HEENT: Conjunctivae normal. NECK: No jugular venous distention. CARDIOVASCULAR SYSTEM: S1, S2 muffled. RESPIRATORY SYSTEM: Breath sounds diminished at the bases. A few scattered rhonchi and crackles. ABDOMEN: Soft, obese, non-tender. No ascites clinically. LEGS: Bilateral leg edema. NERVOUS SYSTEM: Diffusely weak. LABS: Labs at this time show CBC within normal limits. INR is 1.2. Glucose 120. ASSESSMENT: 1. Congestive heart failure, acute exacerbation, with acute on chronic systolic dysfunction, ejection fraction 20% to 25%, with mild mitral regurgitation and tricuspid regurgitation. 2. Hyponatremia. 3. Hyperkalemia. 4. Ascites ruled out. 5. Bilateral pleural effusion, improving. 6. Diabetes mellitus, type 2. 7. Elevated D-dimer without any evidence of acute pulmonary embolism. 8. Troponin 0.046, indeterminate. 9. History of asthma. 10.Hypertension. 11.COVID-19 ruled out. 12.Hyperlipidemia. 13.History of schizophrenia. 14.History of schizophrenia. 15.History of continued ongoing nicotine dependence. 16.FULL CODE. RECOMMENDATIONS AND DISCUSSION: In this 59-year-old gentleman who presented with multiple complex medical issues, we will monitor the patient closely, continue the current medications, continue with symptomatic treatment. The patient is in negative balance at least 2 L in the past 24 hours. The weight is also showing some an increase of 10 kg. But anyhow the patient is clinically improving and, as mentioned earlier, Cardiology is following the patient and recommending cardiac catheterization to rule any underlying coronary artery disease. Will continue to monitor. Prognosis guarded. Discussed with the patient, who understands and agrees. MMODL / IJN: [id number] /
[2019-08-17] MEDS: QUEtiapine 25 MG TAB PO SCH (20:04)
[2019-08-17] MEDS: QUEtiapine 50 MG TAB PO SCH (20:04)
[2019-08-17 20:31] LABS: Glucose,Whole Blood 266 mg/dL (75-99)
[2019-08-17] MEDS: INSULIN DETEMIR (LEVEMIR) 100 UNIT/ML SYR SQ SCH (20:35)
[2019-08-18] MEDS: METOPROLOL SUCCINATE (ER) 25 MG TAB.ER.24H PO SCH (05:10)
[2019-08-18] MEDS: LISINOPRIL 2.5 MG TAB PO SCH (05:10)
[2019-08-18] MEDS ORDERED: ATORVASTATIN 80 MG TAB PO ONE (06:00)
[2019-08-18] MEDS ORDERED: SODIUM CHLORIDE 0.9% 1,000 ML in EMPTY BAG 1 BAG IV ONE (06:00)
[2019-08-18] MEDS ORDERED: ASPIRIN 325 MG TAB PO ONE (06:00)
[2019-08-18 06:09] LABS: Glucose,Whole Blood 207 mg/dL (75-99)
[2019-08-18] MEDS: INSULIN ASPART (NovoLOG) 100 UNIT/ML VIAL SQ SCH ×4 (06:12→19:45)
[2019-08-18 07:02] LABS: Basophils % (A) 1 %; Eosinophils # (A) 0.3 k/uL (0-0.7); Eosinophils % (A) 4 %; HCT 43.1 % (39.0-53.0); HGB 13.8 gm/dL (13.0-17.5); Hypochromasia Moderate; Lymphocytes # (A) 1.6 k/uL (1.0-4.8); Lymphocytes % (A) 25 %; MCH 29.1 pg (25.0-35.0); MCV 91.1 fL (80.0-100.0); Mean Platelet Volume 7.4; Monocytes # (A) 0.5 k/uL (0-1.0); Monocytes % (A) 8 %; Neutrophils # (A) 3.9 k/uL (1.3-7.7); Neutrophils % (A) 61 %; Platelet Count 170 k/uL (150-450); RBC 4.72 m/uL (4.30-5.90); RDW 14.6 % (11.5-15.5); WBC 6.5 k/uL (3.8-10.6)
[2019-08-18 07:19] LABS: INR 1.1 (<1.2); Prothrombin Time 11.5 sec (9.0-12.0)
[2019-08-18 07:26] LABS: African American GFR (CKD) >90 (>60 ml/min/1.73 sqM); Anion Gap 10 mmol/L; Blood Urea Nitrogen 20 mg/dL (9-20); Carbon Dioxide 28 mmol/L (22-30); Chloride 99 mmol/L (98-107); Glucose 205 mg/dL (74-99); Non-African American GFR(CKD) 79 (>60 ml/min/1.73 sqM); Potassium 3.7 mmol/L (3.5-5.1); Sodium 137 mmol/L (137-145)
[2019-08-18 11:18] LABS: Glucose,Whole Blood 218 mg/dL (75-99)
[2019-08-18] MEDS ORDERED: LIDOCAINE 1% INJ 10MG/ML (20 ML MDV) ONE (13:28)
[2019-08-18] MEDS ORDERED: HEPARIN SODIUM 1,000 UN/ML (10ML VL) ONE (13:29)
[2019-08-18] MEDS ORDERED: VERAPAMIL 2.5 MG/ML 2 ML AMP ONE (13:29)
[2019-08-18] MEDS ORDERED: IV FLUID CONTINUATION 1,000 ML IV ONE (13:30)
[2019-08-18] MEDS ORDERED: MIDAZOLAM 2 MG/2 ML VIAL IV ONE ×2 (13:34→13:58)
[2019-08-18] MEDS ORDERED: LIDOCAINE 1% INJ 10MG/ML (20 ML MDV) SQ ONE (13:36)
[2019-08-18] MEDS ORDERED: VERAPAMIL SYRINGE (5 MG/10 ML) INTRAARTER ONE (13:37)
[2019-08-18] MEDS: NITROGLYCERIN 1000MCG/10ML SYRINGE INTRACORON ONE ×3 (14:12→14:25)
[2019-08-18] MEDS ORDERED: IOPAMIDOL-370 125ML BTL INJ ONE (14:16)
[2019-08-18] MEDS ORDERED: PRASUGREL 10 MG TAB ONE (14:29)
[2019-08-18] MEDS ORDERED: PRASUGREL 10 MG TAB PO ONE (14:34)
[2019-08-18] MEDS ORDERED: ATROPINE SULFATE 0.1 MG/ML 10ML SYRINGE IV PRN (14:35)
[2019-08-18] MEDS ORDERED: NITROGLYCERIN SL TABS 0.4 MG TAB SUBLINGUAL PRN (14:35)
[2019-08-18] MEDS ORDERED: RX INFO: IV CONTRAST WAS GIVEN 1 EACH MISC MISCELLANE PRN (14:35)
[2019-08-18] MEDS ORDERED: MAG HYDROX/AL HYDROX/SIMETH 30 ML CUP PO PRN (14:35)
[2019-08-18] MEDS ORDERED: IOPAMIDOL-370 100ML BTL INJ ONE (14:35)
[2019-08-18] MEDS ORDERED: ZOLPIDEM 5 MG TAB PO PRN (14:35)
[2019-08-18] MEDS ORDERED: SODIUM CHLORIDE 0.9% 1,000 ML IV SCH (14:45)
[2019-08-18] MEDS: FUROSEMIDE 10 MG/ML 4 ML VIAL IV SCH ×3 (14:56→20:01)
[2019-08-18] MEDS: metFORMIN 500 MG TAB PO SCH ×2 (14:56→19:45)
[2019-08-18] MEDS: GLIMEPIRIDE 4 MG TAB PO SCH ×2 (14:57→19:45)
[2019-08-18] MEDS: SPIRONOLACTONE 25 MG TAB PO SCH (16:27)
--- NOTE | 2019-08-18 16:51 | PN ---
PROGRESS NOTE DATE OF SERVICE: 08/18/2019 This 59-year-old gentleman who was admitted with CHF, acute exacerbation, had ejection fraction about 20% to 25%. The patient is scheduled to have cardiac catheterization today by Cardiology. No chest pain. No palpitations. No fever. PHYSICAL EXAMINATION: Alert and oriented x3. Pulse 98, blood pressure 110/85, respiration 18, temperature 97.7, pulse ox 99% on room air. HEENT: Conjunctivae normal. NECK: No jugular venous distention. CARDIOVASCULAR SYSTEM: S1, S2 muffled. RESPIRATORY SYSTEM: Breath sounds diminished at the bases. No rhonchi. No crackles. ABDOMEN: Soft, distended. LEGS: Minimal edema. NERVOUS SYSTEM: No focal deficit. LABS: CBC noted. Otherwise, BMP noted. Glucose 205, 218. ASSESSMENT: 1. Congestive heart failure, acute exacerbation, with acute on chronic systolic dysfunction, ejection fraction 20% to 25% with mild mitral regurgitation and tricuspid regurgitation. 2. Hyponatremia. 3. Hyperkalemia. 4. Ascites ruled out. 5. Bilateral pleural effusion, improving. 6. Diabetes mellitus, type 2. 7. Elevated D-dimer without any evidence of acute pulmonary embolism. 8. Troponin 0.046, indeterminate. Rule out acute ndu-OO-equqfnb-elevation myocardial infarction. 9. History of asthma. 10.Hypertension. 11.COVID-19 ruled out. 12.Hyperlipidemia. 13.History of schizophrenia. 14.History of continued ongoing nicotine dependence. 15.FULL CODE. RECOMMENDATIONS AND DISCUSSION: I recommend to continue current medications, continue with symptomatic treatment. Otherwise at this time I recommend continuing with the diuretics. Cardiology evaluation. Cardiac catheterization to evaluate for LifeVest. Guarded prognosis. Further recommendations to follow. MMODL / IJN: [id number] /
[2019-08-18 16:52] LABS: Glucose,Whole Blood 224 mg/dL (75-99)
--- NOTE | 2019-08-18 19:42 | CC ---
CARDIAC CATHETERIZATION REPORT DATE OF PROCEDURE: 08/18/2019 PERFORMING PHYSICIAN: Prince Mahoney M.D. PROCEDURES PERFORMED: 1. Selective right and left coronary angiogram. 2. Successful stenting of the proximal left anterior descending coronary artery using a 2.0 x 15 mm Kevin drug-eluting stent which was post-dilated using a 2.5 mm noncompliant balloon with an excellent angiographic result and reduction of stenosis from 100% to 0%. 3. Successful stenting of the mid left anterior descending artery using a 2.0 x 23 mm Buskirk drug-eluting stent with an excellent angiographic result and reduction of stenosis from 80% to 0%. INDICATION: This is a 59-year-old gentleman with diabetes, hypertension and dyslipidemia who was admitted to the hospital with progressive dyspnea and he was diagnosed with heart failure. Echocardiogram revealed severe cardiomyopathy with EF between 20% and 25% with evidence of wall motion abnormalities concerning for severe underlying coronary artery disease. Because of that, heart catheterization was advised. Please note also that the patient's troponin came in to be elevated. The EKG was also abnormal. APPROACH: Right radial artery. COMPLICATIONS: None. LEVEL OF SEDATION: Moderate, with sedation length of 61 minutes. PROCEDURE DESCRIPTION: After obtaining informed consent, the patient was brought to the cardiac [employer]. The right radial artery was cannulated using micropuncture technique. The micropuncture wire passed easily. Then I placed a 6-Finnish sheath at the right radial artery. I gave the patient at that point 2 mg of verapamil IA and 10,000 units of heparin IV. Selective right and left coronary angiogram was performed using JR4 and JL3.5 catheters. Left heart catheterization was not performed. After that I intervened on the LAD; please see separate paragraph for that. SELECTIVE CORONARY ANGIOGRAM: 1. The right coronary artery is a large-caliber vessel. It is a dominant vessel. The RCA has mild disease only. In the mid portion it bifurcates into PDA and PLV branches. Both appeared to be angiographically normal. 2. The left main appeared to have mild disease only. It bifurcates into LCX and LAD. 3. The LCX is a large-caliber vessel. It is a nondominant vessel. The proximal LCX has mild disease only and gives rise to OM1, which is a 2 mm vessel with an ostial lesion that appeared to be in the range of 80% to 90%. The mid LCX has mild disease only as well and gives rise to a second OM branch, which is a large-caliber vessel with disease in the proximal portion that appeared to be in the range of 60%. The circumflex distally gives rise to a third OM which appeared to be angiographically normal. 4. The LAD. The proximal LAD is 100% occluded. This is after the bifurcation of the second diagonal branch. PERCUTANEOUS CORONARY INTERVENTION OF THE LEFT ANTERIOR DESCENDING CORONARY ARTERY: Anticoagulation was initiated using heparin. We checked the ACT before we started the intervention. Additional 6000 units of heparin was given throughout the procedure. The left main was engaged using a JL3 guide. I attempted crossing the LAD using a Whisper wire, but the wire went into the third diagonal branch of the LAD. With a second Whisper wire I was able to cross the LAD and advance the wire all the way to the distal LAD. I did after that balloon angioplasty using a 2.0 x 12 mm balloon where I did multiple balloon angioplasties of the proximal and mid LAD. The following angiogram showed a critical lesion involving the proximal LAD with severe lesion involving the mid LAD. For the proximal LAD, I deployed a 2.0 X 15 mm Buskirk drug- eluting stent where the stent was positioned under fluoroscopic guidance and deployed under 14 atmospheres for 20 seconds. I post-dilated the stent using a 2.5 x 12 mm NC balloon which was inflated under 20 atmospheres for 20 seconds. The following angiogram showed good angiographic results for the proximal LAD. For the mid LAD lesion, I deployed a 2.0 x 23 mm Buskirk drug-eluting stent where the stent was positioned again under fluoroscopic guidance and deployed under fluoroscopic guidance as well. The following angiogram showed good angiographic results and the procedure was completed without any complication. CONCLUSION: 1. Acute subacute total occlusion of the proximal left anterior descending artery. I did perform successful stenting of the LAD as described above. 2. Severe disease involving OM1 of the LCX and intermediate to severe disease involving OM2. 3. Mild disease involving the left main coronary artery. 4. Mild disease involving the right coronary artery. POST-PROCEDURE MANAGEMENT: 1. Dual anti-platelet therapy. 2. Maximize medical treatment for cardiomyopathy. 3. Aggressive cholesterol control. 4. Follow up with the patient. 5. Consider medical treatment for the left circumflex at this point. MMODL / IJN: [id number] /
[2019-08-18] MEDS: QUEtiapine 50 MG TAB PO SCH (19:44)
[2019-08-18] MEDS: QUEtiapine 25 MG TAB PO SCH (19:44)
[2019-08-18 19:55] LABS: Glucose,Whole Blood 320 mg/dL (75-99)
[2019-08-18] MEDS: INSULIN DETEMIR (LEVEMIR) 100 UNIT/ML SYR SQ SCH (20:01)
[2019-08-19 01:51] LABS: Glucose,Whole Blood 273 mg/dL (75-99)
[2019-08-19] MEDS: INSULIN ASPART (NovoLOG) 100 UNIT/ML VIAL SQ SCH ×4 (05:54→22:20)
[2019-08-19 06:16] LABS: Glucose,Whole Blood 333 mg/dL (75-99)
[2019-08-19 06:28] LABS: African American GFR (CKD) >90 (>60 ml/min/1.73 sqM); Non-African American GFR(CKD) 82 (>60 ml/min/1.73 sqM)
[2019-08-19] MEDS: SPIRONOLACTONE 25 MG TAB PO SCH (08:32)
[2019-08-19] MEDS: METOPROLOL SUCCINATE (ER) 25 MG TAB.ER.24H PO SCH (08:32)
[2019-08-19] MEDS: metFORMIN 500 MG TAB PO SCH ×2 (08:32→22:14)
[2019-08-19] MEDS: GLIMEPIRIDE 4 MG TAB PO SCH ×2 (08:32→22:11)
[2019-08-19] MEDS: LISINOPRIL 2.5 MG TAB PO SCH (08:32)
[2019-08-19] MEDS: FUROSEMIDE 10 MG/ML 4 ML VIAL IV SCH ×3 (08:32→22:03)
[2019-08-19 11:19] LABS: HCT 42.1 % (39.0-53.0); HGB 13.1 gm/dL (13.0-17.5); Hypochromasia Moderate; MCH 28.9 pg (25.0-35.0); MCHC 31.1 g/dL (31.0-37.0); MCV 93.1 fL (80.0-100.0); Mean Platelet Volume 8.2; Platelet Count 152 k/uL (150-450); RBC 4.52 m/uL (4.30-5.90); RDW 14.8 % (11.5-15.5); WBC 6.6 k/uL (3.8-10.6)
[2019-08-19 11:42] LABS: Anion Gap 8 mmol/L; Blood Urea Nitrogen 18 mg/dL (9-20); Calcium 9.1 mg/dL (8.4-10.2); Carbon Dioxide 28 mmol/L (22-30); Chloride 99 mmol/L (98-107); Glucose 284 mg/dL (74-99); Potassium 3.9 mmol/L (3.5-5.1); Sodium 135 mmol/L (137-145)
[2019-08-19 11:45] LABS: Glucose,Whole Blood 288 mg/dL (75-99)
[2019-08-19] MEDS: PRASUGREL 10 MG TAB PO SCH (13:04)
[2019-08-19 16:28] LABS: Glucose,Whole Blood 129 mg/dL (75-99)
--- NOTE | 2019-08-19 16:47 | PN ---
PROGRESS NOTE DATE OF SERVICE: 08/19/2019 This 59-year-old gentleman with a past medical history of multiple medical problems was admitted with CHF, acute exacerbation. The patient underwent cardiac catheterization by Dr. Mahoney today. The cardiac cath showed CAD, and stenting was done. The ejection fraction was found to be 20% to 30% and a LifeVest was also being planned by Cardiology. No chest pain. No palpitations. No fever. PHYSICAL EXAMINATION: Alert and oriented x3. Pulse 99, blood pressure 128/89, respiration 18, temperature 98 degrees, pulse ox 96% on room air. HEENT: Conjunctivae normal. NECK: No jugular venous distention. CARDIOVASCULAR SYSTEM: S1, S2 muffled. RESPIRATORY SYSTEM: Breath sounds diminished at the bases. A few scattered rhonchi. No crackles. ABDOMEN: Soft, non-tender. LEGS: No edema. No swelling. NERVOUS SYSTEM: No focal deficit. LABS: CBC within normal limits. Accu-Cheks 284, 333 and 288. ASSESSMENT: 1. Congestive heart failure, acute exacerbation, with acute on chronic systolic dysfunction, ejection fraction 25%, with possible ischemic cardiomyopathy with mild mitral regurgitation and tricuspid regurgitation. 2. Status post cardiac catheterization and coronary artery disease and stenting. 3. Hyponatremia. 4. Hyperkalemia. 5. Ascites ruled out. 6. Bilateral pleural effusion, improved. 7. Diabetes mellitus, type 2. 8. Elevated D-dimer without any evidence of acute pulmonary embolism. 9. Troponin 0.046, possibly acute wbk-OP-oojzrex-elevation myocardial infarction, present on admission. 10.History of asthma. 11.Hypertension. 12.COVID-19 ruled out. 13.Hyperlipidemia. 14.History of schizophrenia. 15.History of continued ongoing nicotine dependence. 16.FULL CODE. RECOMMENDATIONS AND DISCUSSION: I recommend to continue current medications, continue with the monitoring, symptomatic treatment. Continue with antiplatelet agents. Continue with the rest of the medications. Continue with the diuretics. Otherwise, we will closely monitor. The most recent chest x-ray done yesterday, which was reviewed personally by me, showed significant improvement. We will continue to monitor. Further recommendations to follow. MMODL / IJN: [id number] /
--- NOTE | 2019-08-19 18:25 | ECHOF ---
Referral Reason:limited echo assess lvf MEASUREMENTS -------- HEIGHT: 177.8 cm WEIGHT: 97.1 kg BP: 128/89 IVSd: 1.1 cm (0.6 - 1.1) LVIDd: 5.5 cm (3.9 - 5.3) LVPWd: 1.3 cm (0.6 - 1.1) IVSs: 1.5 cm LVIDs: 4.6 cm LVPWs: 1.4 cm FINDINGS -------- Sinus rhythm. This was a technically adequate study. Limited Study Left ventricular wall thickness is normal. There is severe global hypokinesis of LV . Overall lef t ventricular systolic function is severely impaired with, an EF between 20 - 25 %. CONCLUSIONS -------- 1. Sinus rhythm. 2. This was a technically adequate study. 3. Limited Study 4. Left ventricular wall thickness is normal. 5. There is severe global hypokinesis of LV . 6. Overall left ventricular systolic function is severely impaired with, an EF between 20 - 25 %. PRODUCTION BOW MAKER: Nydia Mg [facility]
[2019-08-19 20:45] LABS: Glucose,Whole Blood 158 mg/dL (75-99)
[2019-08-19] MEDS ORDERED: INSULIN DETEMIR (LEVEMIR) 100 UNIT/ML SYR SQ SCH (21:00)
[2019-08-19] MEDS: QUEtiapine 50 MG TAB PO SCH (22:03)
[2019-08-19] MEDS: INSULIN DETEMIR (LEVEMIR) 100 UNIT/ML SYR SQ SCH (22:03)
[2019-08-20 06:25] LABS: Glucose,Whole Blood 91 mg/dL (75-99)
[2019-08-20] MEDS: INSULIN ASPART (NovoLOG) 100 UNIT/ML VIAL SQ SCH ×3 (07:21→17:02)
[2019-08-20] MEDS: LISINOPRIL 2.5 MG TAB PO SCH (09:18)
[2019-08-20] MEDS: PRASUGREL 10 MG TAB PO SCH (09:18)
[2019-08-20] MEDS: metFORMIN 500 MG TAB PO SCH (09:19)
[2019-08-20] MEDS: GLIMEPIRIDE 4 MG TAB PO SCH (09:19)
[2019-08-20] MEDS: METOPROLOL SUCCINATE (ER) 25 MG TAB.ER.24H PO SCH (09:20)
[2019-08-20] MEDS: SPIRONOLACTONE 25 MG TAB PO SCH (09:20)
[2019-08-20] MEDS: FUROSEMIDE 10 MG/ML 4 ML VIAL IV SCH ×2 (09:21→17:02)
[2019-08-20 11:13] LABS: Glucose,Whole Blood 122 mg/dL (75-99)
--- NOTE | 2019-08-20 13:06 | P.PN ---
Subjective Progress Note Date: 08/20/19 This is a pleasant 59-year-old gentleman with documented history of hypertension, diabetes, hyperlipidemia, asthma, nicotine dependence, schizophrenia, who presented to the hospital with symptoms of progressively worsening shortness of breath over approximately one week duration. He states that he was unable to lie flat in his bed, he became very short of breath doing this. Patient also states that he started to notice swelling in his bilateral lower extremities and abdominal region. For this reason he came to the hospital for further evaluation and treatment. The patient also states that he's been having fever at home with associated vomiting, chills. His chest x-ray on presentation here showed mild pulmonary vascular congestion with trace effusions. A CTA of the chest was performed which did not reveal evidence for pulmonary embolism, it did show fluid overload and a right greater than left pleural effusion. EKG on presentation here showed a sinus tachycardia. Blood pressure on arrival 112/70, heart rate 104, respirations 16, 98% on 2 L of oxygen. White blood cell count 7.0, hemoglobin 13.3, platelet count 154. D- dimer 1.68. Sodium 134, potassium 3.9, BUN 17, creatinine 1.0. BNP level 4690, troponin 0.047. Coated testing remains pending. Patient was initiated on IV Lasix in the emergency room, he is also currently on IV heparin. He has been diuresing well overall. At the time of examination this morning, patient states that his breathing is somewhat improved. He denies any prior history of congestive heart failure. 08/17/2019 Patient was seen and examined This morning, diuresed well through last night. Echocardiogram with Doppler study revealed an ejection fraction of 20-25%. Patient continues to be on IV Lasix. His repeat chest x-ray did show some improvement in his congestive cardiac failure. Sodium 137, potassium 3.7, BUN 22, creatinine 1.0. 08/20/2019 Patient had a repeat echocardiogram with Doppler study performed to assess the LV function, continues to be documented in the range of 20-25%. Therefore we will recommend patient to have a LifeVest. We will order that for him today, continue to monitor him for another 24-48 hours. Objective - Vital Signs Vital signs: Vital Signs Temp 98.2 F 08/20/19 12:25 Pulse 102 H 08/20/19 12:25 Resp 20 08/20/19 12:25 BP 124/80 08/20/19 12:25 Pulse Ox 98 08/20/19 12:25 Intake & Output 08/19/19 08/20/19 08/20/19 18:59 06:59 18:59 Intake Total 970 600 Output Total 2250 1200 Balance 970 -2250 -600 Weight 94.8 kg Intake: IV 10 saline 10 Oral 960 600 Output: Urine 2250 1200 Other: Voiding Method Toilet Toilet Toilet Urinal Urinal Urinal # Voids 3 3 # Bowel Movements 2 - Exam PHYSICAL EXAMINATION: GENERAL: 59-year-old gentleman in no acute distress at the time of my examination HEENT: Head is atraumatic, normocephalic. Pupils equal, round. Sclera anicteric. Conjunctiva are clear. Mucous membranes of the mouth are moist. Neck is supple. There is elevated jugular venous pressure. No carotid bruit is heard. HEART EXAMINATION: Heart S1, S2 normal. No murmur or gallop heard. CHEST EXAMINATION:[ Lungs are clear with improvement in air entry to the bases bilaterally. ABDOMEN: Soft, nontender. Bowel sounds are heard. No organomegaly noted. EXTREMITIES: 2+ peripheral pulses with 1+ evidence of peripheral edema and no calf tenderness noted. NEUROLOGIC patient is awake, alert and oriented 3 - Labs CBC & Chem 7: 08/19/19 05:57 08/19/19 05:57 Labs: Abnormal Lab Results - Last 24 Hours (Table) 08/19/19 08/19/19 08/20/19 Range/Units 16:26 20:33 11:11 POC Glucose (mg/dL) 129 H 158 H 122 H (75-99) mg/dL Assessment and Plan Plan: Assessment and plan #1 congestive heart failure, systolic acute on chronic #2 recent fever and chills, Covid testing negative #3 hypertension, accelerated on admission #4 diabetes #5 hyperlipidemia #6 asthma #7 nicotine dependence #8 schizophrenia #9 sinus tachycardia with elevated d-dimer, a CTA of the chest negative for pulmonary embolism #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 We will recommend the patient to have a LifeVest for prevention of sudden cardiac . We will repeat an echo in approximately 3 months time, if the LV function remains poor he will need a defibrillator to be placed. If his LV function has improved at that time, a LifeVest will be discontinued and we will continue current medications. We will continue to observe the patient for 24 hours for any arrhythmias. DNP note has been reviewed, I agree with a documented findings and plan of care. Patient was seen and examined.
[2019-08-20 16:15] LABS: Glucose,Whole Blood 99 mg/dL (75-99)
--- NOTE | 2019-08-20 16:46 | XR ---
EXAMINATION TYPE: XR chest 1V portable DATE OF EXAM: 08/20/2019 COMPARISON: 08/17/2019 HISTORY: Short of breath TECHNIQUE: FINDINGS: Heart is normal. Lungs are clear of infiltrate. There is no pleural effusion. There are no hilar masses. There is no heart failure. Bony thorax is intact. IMPRESSION: No active cardiopulmonary disease. No change.
--- NOTE | 2019-08-20 17:10 | PN ---
PROGRESS NOTE DATE OF SERVICE: 08/20/2019 This 59-year-old gentleman who was admitted with CHF acute exacerbation is being closely monitored. The patient had cardiac cath and stenting yesterday. A repeat 2D echo was done by Cardiology which showed ejection fraction about 20-25%, severely elevated and Life Vest has been arranged. No chest pain. No palpitations. No fever. PHYSICAL EXAMINATION: Alert and oriented x3. Pulse 102, blood pressure 120/80, respiration 20, temperature 98.2, pulse ox 98% on room air HEENT: Conjunctivae normal. Oral mucosa moist. NECK: No jugular venous distention. No lymph node enlargement. CARDIOVASCULAR: S1, S2. RESPIRATORY: Diminished breath sounds at the bases. No rhonchi, no crackles. ABDOMEN: Soft, obese, nontender. LEGS: No edema, no swelling. NERVOUS SYSTEM: No focal deficits. LABS: Accu-Cheks 91, 122. Other labs are noted. ASSESSMENT: 1. Congestive heart failure acute exacerbation with acute on chronic systolic dysfunction, ejection fraction 20-25%, possibly ischemic cardiomyopathy with mild mitral regurgitation and tricuspid regurgitation. 2. Status post cardiac catheterization and stenting. 3. Life Vest. 4. Hyponatremia. 5. Hyperkalemia. 6. Bilateral pleural effusion, improved. 7. Diabetes mellitus type 2. 8. Elevated D-dimer without any evidence of acute pulmonary embolism. 9. Troponin 0.046. Possible acute dws-FI-arzafoj-elevation myocardial infarction, present on admission. 10.History of asthma. 11.Hypertension. 12.COVID-19 ruled out. 13.Hyperlipidemia. 14.History of schizophrenia. 15.History of continued ongoing nicotine dependence. 16.FULL CODE. RECOMMENDATIONS AND DISCUSSION: I recommend to continue current management, continue symptomatic treatment. Continue with diuretics. Continue rest of medications. Continue dual antiplatelet treatment. Closely follow with Cardiology. Guarded prognosis. Further recommendations to follow. We will transition Lasix to p.o. We will repeat a chest x-ray today. MMODL / IJN: [id number] /
[2019-08-20] MEDS: FUROSEMIDE 40 MG TAB PO SCH (17:13)
[2019-08-20 21:08] LABS: Glucose,Whole Blood 177 mg/dL (75-99)
[2019-08-20] MEDS: QUEtiapine 25 MG TAB PO SCH (22:56)
[2019-08-20] MEDS: QUEtiapine 50 MG TAB PO SCH (22:56)
[2019-08-20] MEDS: INSULIN DETEMIR (LEVEMIR) 100 UNIT/ML SYR SQ SCH (22:57)
[2019-08-21] MEDS: GLIMEPIRIDE 4 MG TAB PO SCH ×2 (01:21→09:50)
[2019-08-21] MEDS: metFORMIN 500 MG TAB PO SCH ×2 (01:21→09:49)
[2019-08-21] MEDS: INSULIN ASPART (NovoLOG) 100 UNIT/ML VIAL SQ SCH ×4 (01:21→11:30)
[2019-08-21 04:03] VITALS: RESP 16
[2019-08-21 06:18] LABS: Glucose,Whole Blood 78 mg/dL (75-99)
[2019-08-21] MEDS ORDERED: METOPROLOL SUCCINATE (ER) 50 MG TAB.ER.24H PO SCH (09:00)
[2019-08-21] MEDS: PRASUGREL 10 MG TAB PO SCH (09:49)
[2019-08-21] MEDS: LISINOPRIL 2.5 MG TAB PO SCH (09:50)
[2019-08-21] MEDS: SPIRONOLACTONE 25 MG TAB PO SCH (09:50)
[2019-08-21] MEDS: FUROSEMIDE 40 MG TAB PO SCH (09:50)
[2019-08-21 09:57] LABS: Glucose,Whole Blood 137 mg/dL (75-99)
[2019-08-21 11:15] LABS: Glucose,Whole Blood 93 mg/dL (75-99)
--- NOTE | 2019-08-21 11:20 | P.PN ---
Subjective Progress Note Date: 08/21/19 This is a pleasant 59-year-old gentleman with documented history of hypertension, diabetes, hyperlipidemia, asthma, nicotine dependence, schizophrenia, who presented to the hospital with symptoms of progressively worsening shortness of breath over approximately one week duration. He states that he was unable to lie flat in his bed, he became very short of breath doing this. Patient also states that he started to notice swelling in his bilateral lower extremities and abdominal region. For this reason he came to the hospital for further evaluation and treatment. The patient also states that he's been having fever at home with associated vomiting, chills. His chest x-ray on presentation here showed mild pulmonary vascular congestion with trace effusions. A CTA of the chest was performed which did not reveal evidence for pulmonary embolism, it did show fluid overload and a right greater than left pleural effusion. EKG on presentation here showed a sinus tachycardia. Blood pressure on arrival 112/70, heart rate 104, respirations 16, 98% on 2 L of oxygen. White blood cell count 7.0, hemoglobin 13.3, platelet count 154. D- dimer 1.68. Sodium 134, potassium 3.9, BUN 17, creatinine 1.0. BNP level 4690, troponin 0.047. Coated testing remains pending. Patient was initiated on IV Lasix in the emergency room, he is also currently on IV heparin. He has been diuresing well overall. At the time of examination this morning, patient states that his breathing is somewhat improved. He denies any prior history of congestive heart failure. 08/17/2019 Patient was seen and examined This morning, diuresed well through last night. Echocardiogram with Doppler study revealed an ejection fraction of 20-25%. Patient continues to be on IV Lasix. His repeat chest x-ray did show some improvement in his congestive cardiac failure. Sodium 137, potassium 3.7, BUN 22, creatinine 1.0. 08/20/2019 Patient had a repeat echocardiogram with Doppler study performed to assess the LV function, continues to be documented in the range of 20-25%. Therefore we will recommend patient to have a LifeVest. We will order that for him today, continue to monitor him for another 24-48 hours. 08/21/2019 Patient seen and examined this morning, doing well, up ambulating in his room without any difficulty. Hemodynamically stable. LifeVest was delivered yesterday. No arrhythmias noted on the monitor. Objective - Vital Signs Vital signs: Vital Signs Temp 98.3 F 08/21/19 08:00 Pulse 104 H 08/21/19 08:00 Resp 16 08/21/19 08:00 BP 116/76 08/21/19 08:00 Pulse Ox 99 08/21/19 08:00 Intake & Output 08/20/19 08/21/19 08/21/19 18:59 06:59 18:59 Intake Total 960 360 Output Total 2250 650 Balance -1290 -650 360 Weight 94.9 kg Intake: Oral 960 360 Output: Urine 2250 650 Other: Voiding Method Toilet Toilet Toilet Urinal Urinal Urinal # Voids 1 900 1 - Exam PHYSICAL EXAMINATION: GENERAL: 59-year-old gentleman in no acute distress at the time of my examination HEENT: Head is atraumatic, normocephalic. Pupils equal, round. Sclera anicteric. Conjunctiva are clear. Mucous membranes of the mouth are moist. Neck is supple. There is elevated jugular venous pressure. No carotid bruit is heard. HEART EXAMINATION: Heart S1, S2 normal. No murmur or gallop heard. CHEST EXAMINATION:[ Lungs are clear with improvement in air entry to the bases bilaterally. ABDOMEN: Soft, nontender. Bowel sounds are heard. No organomegaly noted. EXTREMITIES: 2+ peripheral pulses with 1+ evidence of peripheral edema and no calf tenderness noted. NEUROLOGIC patient is awake, alert and oriented 3 - Labs CBC & Chem 7: 08/19/19 05:57 08/19/19 05:57 Labs: Abnormal Lab Results - Last 24 Hours (Table) 08/20/19 08/21/19 Range/Units 21:07 09:54 POC Glucose (mg/dL) 177 H 137 H (75-99) mg/dL Assessment and Plan Plan: Assessment and plan #1 congestive heart failure, systolic acute on chronic #2 recent fever and chills, Covid testing negative #3 hypertension, accelerated on admission #4 diabetes #5 hyperlipidemia #6 asthma #7 nicotine dependence #8 schizophrenia #9 sinus tachycardia with elevated d-dimer, a CTA of the chest negative for pulmonary embolism #10 non-Q-wave [place] status post LAD stenting Plan From cardiology's perspective, patient may be able to be discharged home today. We'll make him a follow-up appointment to see Dr. Chamberlain in the office post discharge. DNP note has been reviewed, I agree with a documented findings and plan of care. Patient was seen and examined.
[2019-08-21 13:18] VITALS: BP 130/85; PULSE 101; TEMP 97.4
--- NOTE | 2019-08-22 02:51 | DS ---
DISCHARGE SUMMARY DATE OF SERVICE: 08/21/2019 FINAL DIAGNOSES: 1. Congestive heart failure acute exacerbation with acute on chronic systolic dysfunction ejection fraction 20% to 25% with possible ischemic cardiomyopathy with mild mitral regurgitation and tricuspid regurgitation. 2. Status post cardiac catheterization and stenting. 3. Life Vest. 4. Hyponatremia. 5. Hyperkalemia. 6. Bilateral pleural effusion, improved. 7. Diabetes mellitus type 2. 8. Elevated D-dimer without any evidence of acute pulmonary embolism. 9. Troponin 0.046. Possible acute mun-XR-hldedpq-elevation myocardial infarction present on admission. 10.History of asthma. 11.Hypertension. 12.COVID-19 ruled out. 13.Hyperlipidemia. 14.History of schizophrenia. 15.History of continued ongoing nicotine dependence. 16.FULL CODE. DISCHARGE DISPOSITION: The patient will be discharged in stable condition and guarded prognosis. Cardiology cleared the patient for discharge. Total time 35 minutes. HISTORY OF PRESENT ILLNESS: This 59-year-old gentleman with a past medical history of multiple medical problems admitted with congestive heart failure exacerbation. The patient's ejection fraction was 20% to 25%, possibly ischemic cardiomyopathy. Patient treated with diuretics. Patient improved. The patient also had cardiac catheterization and stenting per Cardiology. Patient was also fitted with Life Vest per Cardiology recommendation because ejection fraction. Recommended to continue outpatient followup. Otherwise, the most recent chest x-ray improved significantly. The patient will be discharged in a stable condition with guarded prognosis following advice and medications. On exam, vitals are stable. CARDIOVASCULAR: S1, S2 muffled. ABDOMEN: Soft. NERVOUS SYSTEM: No focal deficits. DISCHARGE ADVICE: 1. Diet is cardiac. 2. Activity limited until followup. 3. Follow up with Dr. Bedoya in 2 to 3 days. 4. Follow up with Cardiology as recommended. 5. Fluid restriction 1200 mL per 24 hours. 6. Diet no added salt. MEDICATIONS: 1. Amaryl 4 mg p.o. b.i.d. 2. Levemir 65 units subcu at bedtime. 3. Seroquel 25 mg at bedtime p.r.n. and 150 mg p.o. at bedtime. 4. Toprol-XL 25 mg p.o. daily. 5. Aldactone 25 mg p.o. daily. 6. Effient 10 mg p.o. daily. 7. Lasix 40 mg p.o. daily. Lasix dose to be re-evaluated in the outpatient setting. 8. Metformin 1000 mg p.o. b.i.d. 9. Nitroglycerin 0.4 sublingual p.r.n. 10.Zestril 5 mg p.o. daily. CBC, BMP in the outpatient setting with Dr. Bedoya. PADILLA / TRESA: [id number] / MTDD
== END 2019-08-21 14:16 | disposition home or self-care (01) | DRG 246 ==
LOC: EEVIPCON 12:51 → EC 12:51 → 3SCARD 22:25
PROVIDERS: ADMIT Hospitalist; ATTEND Hospitalist
PROC: 4A023N7 Measurement of Cardiac Sampling and Pressure, Left Heart, Percutaneous Approach (ICD-10-PCS; principal; 2019-08-18 10:10)
PROC: B2111ZZ Fluoroscopy of Multiple Coronary Arteries using Low Osmolar Contrast (ICD-10-PCS; principal; 2019-08-18 10:10)
PROC: 027135Z Dilation of Coronary Artery, Two Arteries with Two Drug-eluting Intraluminal Devices, Percutaneous Approach (ICD-10-PCS; principal; 2019-08-18 10:10)
DX: I11.0 Hypertensive heart disease with heart failure (principal); I21.4 Non-ST elevation (NSTEMI) myocardial infarction; E87.1 Hypo-osmolality and hyponatremia; R18.8 Other ascites; I50.23 Acute on chronic systolic (congestive) heart failure; I25.5 Ischemic cardiomyopathy; I25.10 Atherosclerotic heart disease of native coronary artery without angina pectoris; I08.1 Rheumatic disorders of both mitral and tricuspid valves; F20.9 Schizophrenia, unspecified; F17.210 Nicotine dependence, cigarettes, uncomplicated; E11.9 Type 2 diabetes mellitus without complications; E78.5 Hyperlipidemia, unspecified; E87.5 Hyperkalemia; J45.909 Unspecified asthma, uncomplicated; Z20.828 Contact with and (suspected) exposure to other viral communicable diseases; Z79.4 Long term (current) use of insulin; Z79.899 Other long term (current) drug therapy; Z90.49 Acquired absence of other specified parts of digestive tract; R79.1 Abnormal coagulation profile
CPT/HCPCS: 36415; 71045; 71046; 71275; 76705; 80048; 80053; 81003; 83605; 83735; 83880; 84484; 85025; 85027; 85379; 85610; 85730; 87635; 93005; 93306; 93458; 96365; 96366; 96375; 96376; 99285

== ENCOUNTER 2024-10-03 09:28 | Day surgery (SDC) | payer MEDICARE, OTHER ==
[~2024-10-03 09:28] MED LIST: LIDOCAINE 1% (10MG/ML) FOR IV START INTRADERMA PRN
[2024-10-03 10:36] VITALS: RESP 16; TEMP 97.6
[2024-10-03] MEDS: IV FLUID CONTINUATION 1,000 ML IV ONE (10:44)
[2024-10-03] MEDS: LACTATED RINGERS 1,000 ML IV SCH (10:46)
[2024-10-03 10:53] LABS: Glucose,Whole Blood 89 mg/dL (70-110)
[2024-10-03] MEDS ORDERED: PROPOFOL 10 MG/ML 20 ML VIAL IV ONE (11:02)
[2024-10-03 11:23] VITALS: PULSE 75
[2024-10-03 11:38] VITALS: BP 131/78
--- NOTE | 2024-10-03 14:13 | P.OP ---
Date of Procedure: 10/03/24 Preoperative Diagnosis: Screening Postoperative Diagnosis: 1. Normal Colon 2. Suboptimal Prep Procedure(s) Performed: Colonoscopy Anesthesia: MAC Surgeon: Miguel Angel Romero Pathology: none sent Condition: stable Disposition: PACU Description of Procedure: After informed consent was obtained, the patient was placed in the left lateral position and sedated. Monitoring was provided throughout the entire procedure. Digital rectal exam was performed revealing normal sphincter tone and no external hemorrhoids. The colonoscope was inserted into rectum and advanced under direct visualization, without difficulty, to the cecum, where the cecal strap, appendiceal orifice, and the ileocecal valve were identified. The quality of the preparation was suboptimal. The colonoscope was then withdrawn while carefully examining the mucosa. The colonic mucosa appeared normal with normal vascularity and haustral mar kings. No masses, polyps, AVM/s or diverticula were seen. On retroflexed view in the rectum, there were no internal hemorrhoids. The endoscope was removed and the procedure terminated. The patient tolerated the procedure well without complications.
== END 2024-10-03 11:52 | disposition home or self-care (01) ==
LOC: ORWHC2ENDO 09:28
PROVIDERS: ATTEND Surgery
DX: Z12.11 Encounter for screening for malignant neoplasm of colon (principal); I10 Essential (primary) hypertension; I25.10 Atherosclerotic heart disease of native coronary artery without angina pectoris; E11.9 Type 2 diabetes mellitus without complications; E78.5 Hyperlipidemia, unspecified; J45.909 Unspecified asthma, uncomplicated; F84.0 Autistic disorder; F20.9 Schizophrenia, unspecified; Z79.4 Long term (current) use of insulin; Z79.84 Long term (current) use of oral hypoglycemic drugs; Z79.620 Long term (current) use of immunosuppressive biologic; Z79.899 Other long term (current) drug therapy; Z88.6 Allergy status to analgesic agent; Z88.2 Allergy status to sulfonamides
CPT/HCPCS: J2704; G0121; 45378